=== PATIENT | female | born 1975 | race Two or more races ===

== ENCOUNTER 2020-09-11 11:54 | Inpatient (IN) | payer BC, OTHER ==
[~2020-09-11] VITALS: Ht 154.9 cm; Wt 69.9 kg
[2020-09-11 12:23] LABS: Basophils # (auto) 0 10 ^3/uL (0-0.2); Basophils % (auto) 0.2 % (0.0-2.0); Eosinophils # (auto) 0 10 ^3/uL (0-0.8); Hematocrit 42.3 % (36.0-46.0); Hemoglobin 14.8 g/dL (12.2-16.2); Lymphocytes # (auto) 0.4 10 ^3/uL (0.4-5.4); Lymphocytes % (auto) 10.9 % (10.0-50.0); Mean Corpuscular Hemoglobin 30.5 pg (28.0-32.0); Mean Corpuscular Hgb Conc. 35.1 g/dL (32.0-36.0); Monocytes # (auto) 0.3 10 ^3/uL (0-1.3); Monocytes % (auto) 8.3 % (0.0-12.0); Neutrophils # (auto) 3.1 10 ^3/uL (1.6-8.6); Neutrophils % (auto) 80.6 % (37.0-80.0); Nucleated Red Blood Cells % 0.6 %; Red Blood Cells 4.86 10^6/uL (4.0-5.20); Red Cell Distribution Width 13.1 % (11.8-14.3); White Blood Cell 3.8 10^3/uL (4.4-10.8)
[2020-09-11] MEDS ORDERED: ACETAMINOPHEN 325 MG TAB PO ONE (12:30)
[2020-09-11 12:38] LABS: Calcium 8.6 mg/dL (8.5-10.1)
[2020-09-11 12:44] LABS: BUN/Creatinine Ratio 11.9; Bilirubin, Total 0.5 mg/dL (0.2-1.0); Total Protein 7.8 g/dL (6.4-8.2)
[2020-09-11] MEDS ORDERED: ZINC SULFATE 220mg CAP or TAB PO ONE (12:45)
[2020-09-11] MEDS ORDERED: ASCORBIC ACID 500 MG TAB PO ONE (12:45)
[2020-09-11] MEDS ORDERED: DexAMETHasone SOD PHOS 10MG/1ML VIAL INJ IV ONE (12:45)
[2020-09-11] MEDS ORDERED: AZITHROMYCIN 500MG/ 250ML 250 ML IV ONE (12:45)
[2020-09-11] MEDS ORDERED: ONDANSETRON HCL 4 MG/2 ML VIAL ONE (13:25)
[2020-09-11] MEDS ORDERED: ONDANSETRON HCL 4 MG/2 ML VIAL IV ONE (13:30)
[2020-09-11] MEDS ORDERED: SODIUM CHLORIDE 0.9% 1,000 ML IV ONE (13:45)
[2020-09-11 13:48] LABS: Partial Thromboplastin Time 27.9 sec (23.0-31.2)
[2020-09-11] MEDS: POTASSIUM CHL 20MEQ/100ML 100 ML IV SCH ×2 (15:33→18:16)
[2020-09-11] MEDS ORDERED: HYDROcodone-ACET 5/325MG TAB PO PRN (18:00)
[2020-09-11] MEDS ORDERED: MORPHINE SULFATE INJECTION 2 MG/ML SYRG IV PRN ×2 (18:00)
[2020-09-11] MEDS ORDERED: NITROGLYCERIN 0.4 MG SL TAB SL PRN (18:00)
[2020-09-11] MEDS ORDERED: ACETAMINOPHEN 500 MG TAB PO PRN (18:00)
[2020-09-11] MEDS ORDERED: ONDANSETRON HCL 4 MG/2 ML VIAL IV PRN (18:00)
[2020-09-11 19:24] LABS: CRP High Sensitivity 4.47 mg/dL (< 0.3)
[2020-09-11] MEDS: ENOXAPARIN SOD 40 MG/0.4 ML SYRINGE SC SCH (21:39)
[2020-09-11] MEDS: BUDESONIDE (INHALATION) 180 MCG IH IN SCH (22:00)
[2020-09-12 06:10] LABS: Basophils # (auto) 0 10 ^3/uL (0-0.2); Basophils % (auto) 0.3 % (0.0-2.0); Eosinophils # (auto) 0 10 ^3/uL (0-0.8); Hematocrit 38.6 % (36.0-46.0); Hemoglobin 13.6 g/dL (12.2-16.2); Lymphocytes # (auto) 0.6 10 ^3/uL (0.4-5.4); Lymphocytes % (auto) 14.2 % (10.0-50.0); Mean Corpuscular Hgb Conc. 35.3 g/dL (32.0-36.0); Monocytes # (auto) 0.5 10 ^3/uL (0-1.3); Monocytes % (auto) 10.8 % (0.0-12.0); Neutrophils # (auto) 3.1 10 ^3/uL (1.6-8.6); Neutrophils % (auto) 74.7 % (37.0-80.0); Nucleated Red Blood Cells % 0.3 %; Red Blood Cells 4.39 10^6/uL (4.0-5.20); Red Cell Distribution Width 12.8 % (11.8-14.3); White Blood Cell 4.2 10^3/uL (4.4-10.8)
[2020-09-12 06:52] LABS: Potassium 3.8 mmol/L (3.5-5.1)
[2020-09-12 06:59] LABS: Albumin 3.3 g/dL (3.4-5.0); BUN/Creatinine Ratio 10.2; Bilirubin, Total 0.4 mg/dL (0.2-1.0); Calcium 8.2 mg/dL (8.5-10.1); Total Protein 6.9 g/dL (6.4-8.2)
[2020-09-12] MEDS: cefTRIAXone 1GM/50ML D5W 50 ML IV SCH (08:50)
[2020-09-12] MEDS: FAMOTIDINE 20 MG TAB PO SCH (09:22)
[2020-09-12] MEDS: ASCORBIC ACID 1,000 MG TAB PO SCH (09:22)
[2020-09-12] MEDS: ENOXAPARIN SOD 40 MG/0.4 ML SYRINGE SC SCH ×2 (09:22→22:23)
[2020-09-12] MEDS: DexAMETHasone SOD PHOS 10MG/1ML VIAL INJ IV SCH (09:22)
[2020-09-12] MEDS: ZINC SULFATE 220mg CAP or TAB PO SCH (09:22)
[2020-09-12] MEDS: AZITHROMYCIN 500MG/ 250ML 250 ML IV SCH (09:22)
[2020-09-12] MEDS: CHOLECALCIFEROL (VITD3) 2,000 UNIT CAP/TAB PO SCH (09:22)
[2020-09-12] MEDS: BUDESONIDE (INHALATION) 180 MCG IH IN SCH ×2 (12:02→18:44)
[2020-09-12] MEDS ORDERED: diphenhdrAMINE HCL 50 MG/1 ML VL IV PRN (12:45)
[2020-09-12] MEDS ORDERED: REMDESIVIR PER PHARMACY 0 ML IV SCH (12:45)
[2020-09-12] MEDS ORDERED: REMDESIVIR 200 MG in NS 210ml LOADING DOSE ADULT IV ONE (15:00)
[2020-09-13 00:07] VITALS: BP 115/76
[2020-09-13] MEDS ORDERED: ATEN-60 PO (01:18)
[2020-09-13] MEDS: BUDESONIDE (INHALATION) 180 MCG IH IN SCH ×2 (07:09→10:00)
[2020-09-13 08:00] VITALS: BP 106/75
[2020-09-13 08:11] LABS: Chloride 106 mmol/L (98-107); Potassium 3.2 mmol/L (3.5-5.1); Sodium 138 mmol/L (136-145)
[2020-09-13 08:15] LABS: Alanine Aminotransferase 47 U/L (13-56); Albumin 3.3 g/dL (3.4-5.0); Anion Gap 6 (5-15); Aspartate Aminotransferase 20 U/L (15-37); BUN/Creatinine Ratio 22.5; Blood Urea Nitrogen 9 mg/dL (7-18); Calcium 8.5 mg/dL (8.5-10.1); Carbon Dioxide 26 mmol/L (21-32); GFR African American 221 mL/min; GFR Non-African American 183 mL/min; Glucose 91 mg/dL (74-106)
[2020-09-13 08:18] LABS: Alkaline Phosphatase 92 U/L (45-117); Bilirubin, Total 0.4 mg/dL (0.2-1.0); Total Protein 6.8 g/dL (6.4-8.2)
[2020-09-13] MEDS ORDERED: ATENOLOL 25 MG TAB PO SCH (10:00)
[2020-09-13] MEDS: cefTRIAXone 1GM/50ML D5W 50 ML IV SCH (10:04)
[2020-09-13] MEDS: FUROSEMIDE 20 MG/2 ML VIAL IV SCH (10:05)
[2020-09-13] MEDS: DexAMETHasone SOD PHOS 10MG/1ML VIAL INJ IV SCH (10:05)
[2020-09-13] MEDS: AZITHROMYCIN 500MG/ 250ML 250 ML IV SCH (10:06)
[2020-09-13] MEDS: POTASSIUM CHL 10 Meq TABLET PO SCH (10:08)
[2020-09-13] MEDS: ZINC SULFATE 220mg CAP or TAB PO SCH (10:08)
[2020-09-13] MEDS: FAMOTIDINE 20 MG TAB PO SCH (10:08)
[2020-09-13] MEDS: CHOLECALCIFEROL (VITD3) 2,000 UNIT CAP/TAB PO SCH (10:09)
[2020-09-13] MEDS: ENOXAPARIN SOD 40 MG/0.4 ML SYRINGE SC SCH ×2 (10:09→21:58)
[2020-09-13] MEDS: ASCORBIC ACID 1,000 MG TAB PO SCH (10:09)
[2020-09-13] MEDS ORDERED: POTASSIUM CHL 20 Meq TABLET PO ONE (11:45)
[2020-09-13 16:00] VITALS: BP 108/75
[2020-09-13] MEDS: REMDESIVIR 100 MG in SODIUM CHL 0.9% 250 ML IV SCH (16:10)
[2020-09-14] VITALS: BP 116/81
[2020-09-14] MEDS: BUDESONIDE (INHALATION) 180 MCG IH IN SCH ×2 (07:09→21:57)
[2020-09-14 08:00] VITALS: BP 110/75
[2020-09-14] MEDS: cefTRIAXone 1GM/50ML D5W 50 ML IV SCH (09:00)
[2020-09-14 09:10] LABS: BUN/Creatinine Ratio 33.3; Calcium 8.6 mg/dL (8.5-10.1); Potassium 3.3 mmol/L (3.5-5.1)
[2020-09-14] MEDS: DexAMETHasone SOD PHOS 10MG/1ML VIAL INJ IV SCH (09:34)
[2020-09-14] MEDS: AZITHROMYCIN 500MG/ 250ML 250 ML IV SCH (09:34)
[2020-09-14] MEDS: CHOLECALCIFEROL (VITD3) 2,000 UNIT CAP/TAB PO SCH (09:35)
[2020-09-14] MEDS: ZINC SULFATE 220mg CAP or TAB PO SCH (09:35)
[2020-09-14] MEDS: ENOXAPARIN SOD 40 MG/0.4 ML SYRINGE SC SCH ×2 (09:35→21:08)
[2020-09-14] MEDS: POTASSIUM CHL 10 Meq TABLET PO SCH (09:35)
[2020-09-14] MEDS: FAMOTIDINE 20 MG TAB PO SCH (09:35)
[2020-09-14] MEDS: ASCORBIC ACID 1,000 MG TAB PO SCH (09:35)
[2020-09-14] MEDS: FUROSEMIDE 20 MG/2 ML VIAL IV SCH (09:38)
[2020-09-14] MEDS ORDERED: POTASSIUM CHL 20 Meq TABLET PO ONE (12:45)
[2020-09-14 16:00] VITALS: BP 109/63
[2020-09-14] MEDS: REMDESIVIR 100 MG in SODIUM CHL 0.9% 250 ML IV SCH (16:30)
[2020-09-14] MEDS ORDERED: TEMAZEPAM 15 MG CAP PO ONE ×2 (20:30)
[2020-09-14] MEDS ORDERED: DOCUSATE SOD 100 MG CAP PO PRN (20:30)
[2020-09-14 22:36] VITALS: BP 101/59
[2020-09-15] VITALS: BP 101/59
[2020-09-15] MEDS: BUDESONIDE (INHALATION) 180 MCG IH IN SCH ×2 (07:35→21:17)
[2020-09-15 08:12] VITALS: BP 115/71
[2020-09-15] MEDS: ZINC SULFATE 220mg CAP or TAB PO SCH (09:10)
[2020-09-15] MEDS: cefTRIAXone 1GM/50ML D5W 50 ML IV SCH (09:10)
[2020-09-15] MEDS: DexAMETHasone 4 MG TAB PO SCH (09:12)
[2020-09-15] MEDS: ASCORBIC ACID 1,000 MG TAB PO SCH (09:13)
[2020-09-15] MEDS: POTASSIUM CHL 10 Meq TABLET PO SCH (09:13)
[2020-09-15] MEDS: FAMOTIDINE 20 MG TAB PO SCH (09:13)
[2020-09-15] MEDS: AZITHROMYCIN 250 MG TAB PO SCH (09:14)
[2020-09-15] MEDS: ENOXAPARIN SOD 40 MG/0.4 ML SYRINGE SC SCH ×2 (09:14→21:20)
[2020-09-15] MEDS: CHOLECALCIFEROL (VITD3) 2,000 UNIT CAP/TAB PO SCH (09:15)
[2020-09-15] MEDS: FUROSEMIDE 20 MG TAB PO SCH (10:00)
[2020-09-15 16:00] VITALS: BP 102/70
[2020-09-15] MEDS: REMDESIVIR 100 MG in SODIUM CHL 0.9% 250 ML IV SCH (16:30)
[2020-09-15] MEDS ORDERED: TEMAZEPAM 15 MG CAP PO ONE (23:00)
[2020-09-16] VITALS: BP 114/79
[2020-09-16] MEDS: BUDESONIDE (INHALATION) 180 MCG IH IN SCH (06:26)
[2020-09-16 08:00] VITALS: BP 102/72
[2020-09-16] MEDS: cefTRIAXone 1GM/50ML D5W 50 ML IV SCH (08:55)
[2020-09-16] MEDS: DexAMETHasone 4 MG TAB PO SCH (08:56)
[2020-09-16] MEDS: ZINC SULFATE 220mg CAP or TAB PO SCH (08:56)
[2020-09-16] MEDS: POTASSIUM CHL 10 Meq TABLET PO SCH (08:57)
[2020-09-16] MEDS: FUROSEMIDE 20 MG TAB PO SCH (08:58)
[2020-09-16] MEDS: FAMOTIDINE 20 MG TAB PO SCH (08:58)
[2020-09-16] MEDS: ASCORBIC ACID 1,000 MG TAB PO SCH (08:58)
[2020-09-16] MEDS: ENOXAPARIN SOD 40 MG/0.4 ML SYRINGE SC SCH (08:59)
[2020-09-16] MEDS: AZITHROMYCIN 250 MG TAB PO SCH (08:59)
[2020-09-16] MEDS ORDERED: CHOL1CAP47 PO (09:49)
[2020-09-16] MEDS ORDERED: ZINC220T6 PO (09:49)
[2020-09-16] MEDS ORDERED: ASCO500T11 PO (09:49)
[2020-09-16] MEDS ORDERED: DEX4T PO (09:49)
[2020-09-16] MEDS ORDERED: FAMO-12 PO (09:49)
[2020-09-16] MEDS: CHOLECALCIFEROL (VITD3) 2,000 UNIT CAP/TAB PO SCH (12:34)
[2020-09-16 15:42] VITALS: BP 102/72
[2020-09-16 16:00] VITALS: BP 92/67
[2020-09-16] MEDS ORDERED: ASPI81CH43 PO (16:04)
== END 2020-09-16 17:49 | disposition home or self-care (01) | DRG 177 ==
LOC: ER 11:54 → TELE 11:55 → TELE-WESTW 09-12 23:35
PROVIDERS: ADMIT Nurse Practitioner Acute Care; ATTEND Internal Medicine
PROC: XW033E5 Introduction of Remdesivir Anti-infective into Peripheral Vein, Percutaneous Approach, New Technology Group 5 (ICD-10-PCS; principal; 2020-09-12)
DX: U07.1 COVID-19 (principal); J96.01 Acute respiratory failure with hypoxia; J12.82 Pneumonia due to coronavirus disease 2019; E87.1 Hypo-osmolality and hyponatremia; I10 Essential (primary) hypertension; E87.6 Hypokalemia; E78.5 Hyperlipidemia, unspecified; D69.6 Thrombocytopenia, unspecified; R73.9 Hyperglycemia, unspecified; D89.839 Cytokine release syndrome, grade unspecified; Z82.49 Family history of ischemic heart disease and other diseases of the circulatory system; Z90.710 Acquired absence of both cervix and uterus
CPT/HCPCS: 36415; 71045; 80048; 80053; 82728; 83036; 83605; 83615; 83735; 83880; 84443; 85025; 85379; 85610; 85730; 86141; 86850; 86900; 86901; 87040; 87426; 87804; 94640; 96361; 96365; 96366; 96375; G0378; J0696; J1100; J2405; J3480

== ENCOUNTER 2022-09-03 01:17 | Emergency (ER) | payer BC, OTHER ==
[~2022-09-03] VITALS: Ht 152.4 cm; Wt 79.3 kg
[~2022-09-03 01:17] MED LIST: ASCO500T11 PO; ASPI81CH43 PO; ATEN-60 PO; CHOL1CAP47 PO; DEX4T PO; FAMO-12 PO; ZINC220T6 PO
[2022-09-03 02:04] VITALS: BP 145/83
[2022-09-03] MEDS ORDERED: POLYSOL15 OP (03:53)
== END 2022-09-03 04:24 | disposition home or self-care (01) ==
LOC: ER 01:20
DX: H10.31 Unspecified acute conjunctivitis, right eye (principal); J06.9 Acute upper respiratory infection, unspecified; I10 Essential (primary) hypertension; Z90.49 Acquired absence of other specified parts of digestive tract; Z90.710 Acquired absence of both cervix and uterus; Z20.822 Contact with and (suspected) exposure to COVID-19; Z88.2 Allergy status to sulfonamides
CPT/HCPCS: 36415; 87426; 87804

== ENCOUNTER 2023-02-26 21:39 | Emergency (ER) | payer OTHER ==
[~2023-02-26] VITALS: Ht 152.4 cm; Wt 72.5 kg
[~2023-02-26 21:39] MED LIST changes: +POLYSOL28 OP
[2023-02-26 22:00] VITALS: BP 112/78
[2023-02-27] MEDS ORDERED: KETOROLAC TROMETH 30 MG/ML 1ML VIAL IM ONE
[2023-02-27] MEDS ORDERED: CYCL-837 PO (00:04)
[2023-02-27] MEDS ORDERED: IBUP-1455 PO (00:04)
== END 2023-02-27 00:28 | disposition home or self-care (01) ==
LOC: ER 21:44
DX: S16.1XXA Strain of muscle, fascia and tendon at neck level, initial encounter (principal); E78.5 Hyperlipidemia, unspecified; I10 Essential (primary) hypertension; Z90.49 Acquired absence of other specified parts of digestive tract; Z90.710 Acquired absence of both cervix and uterus; Z88.6 Allergy status to analgesic agent; X58.XXXA Exposure to other specified factors, initial encounter; Y93.89 Activity, other specified; Y92.89 Other specified places as the place of occurrence of the external cause; Y99.8 Other external cause status
CPT/HCPCS: 96372; 99283; J1885

== ENCOUNTER 2025-09-05 08:39 | Emergency (ER) | payer MEDICAID, OTHER ==
[~2025-09-05] VITALS: Ht 162.6 cm; Wt 70.0 kg
[~2025-09-05 08:39] MED LIST changes: +CYCL-837 PO; +IBUP-1455 PO
--- NOTE | 2025-09-05 09:02 | ED.PDOC ---
Back pain HPI HPI Comments A 49 YEAR OLD FEMALE VIANCA PRESENTS TO THE ED WITH COMPLAINT OF BACK PAIN. PATIENT REPORTS THAT SHE HAS BEEN EXPERIENCING PERSISTENT LOWER BACK PAIN WORSENING FOR THE PAST 2 WEEKS. PATIENT RELAYS THAT HER PAIN SUDDENLY WORSENED TODAY, NEEDING TO CALL 911 FOR ASSISTANCE. EMS STATES PATIENT WAS GIVEN TOTAL 42MG OF KETAMINE EN ROUTE TO THE ED. PATIENT NOTES SHE HAS HISTORY OF CHRONIC BACK PAIN. THE BACK PAIN DOES NOT RADIATE TO LOWER LEGS. PATIENT DENIES FEVER, CHILLS, FALL, INJURY, SHORTNESS OF BREATH, CHEST PAIN, ABDOMINAL PAIN, NAUSEA, VOMITING, HEADACHE, OR OTHER COMPLAINTS. NO OTHER SYMPTOMS OR MODIFYING FACTORS AT THIS TIME. PATIENT IS ALERT, ORIENTED X 4, AND HAS STEADY GAIT. Chief Complaint: Back Pain Time Seen by MD: 08:54 Reviewed Notes: Nurses Notes, Glass Vial Filler Notes, Medications, Allergies Allergies: Coded Allergies: NO KNOWN ALLERGIES (Unverified , 09/11/20) Home Meds Active Scripts Methocarbamol (Methocarbamol) 750 Mg Tab, 750 MG PO BID, #20 TAB Prov:IVELISSE JUSTICE 09/05/25 Ibuprofen (Ibuprofen) 800 Mg Tab, 1 TAB PO TID, #30 TAB Prov:IVELISSE JUSTICE 09/05/25 Cyclobenzaprine Hcl (Cyclobenzaprine Hcl) 5 Mg Tab, 1 TAB PO QPM PRN, #20 TAB 0 Refills Prov:MICHELLE KOHLER 02/27/23 Ibuprofen Micronized (Ibuprofen) 800 Mg Tab, 800 MG PO Q6HPRN PRN, #30 TAB 0 Refills Prov:MICHELLE KOHLER 02/27/23 Polymyxin B-Trimethoprim (Trimethoprim Sulfate/Poly) Polymyxn Kasey, 1 DROP OP Q3HWA for 7 Days, #1 BOTTLE 0 Refills Prov:MICHELLE KOHLER 09/03/22 Aspirin (Asa) 81 Mg Ch, 81 MG PO DAILY for 30 Days, #30 TAB Prov:VINOD DEXTER MD 09/16/20 Famotidine (Famotidine) 20 Mg Tab, 20 MG PO DAILY for 30 Days, #30 TAB Prov:VINOD DEXTER MD 09/16/20 Dexamethasone (Decadron) 4 Mg Tb, 4 TAB PO DAILY, #5 TAB Prov:VINOD DEXTER MD 1/4/21 Zinc Sulfate (Zinc Sulfate) 220 Mg Tab, 220 MG PO DAILY for 30 Days, #30 TAB Prov:VINOD DEXTER MD 09/16/20 Ascorbic Acid (VITAMIN C TABLET) 500 Mg Tb, 1 TAB PO BID, #60 TAB Prov:VINOD DEXTER MD 09/16/20 Cholecalciferol (Vitamin D3 Super Strength) 2,000 Unit Cap, 4000 UNIT PO DAILY for 30 Days, #60 CAP Prov:VINOD DEXTER MD 09/16/20 Reported Medications Atenolol (Atenolol) 25 Mg Tab, 10 MG PO DAILY for 30 Days, MG 09/13/20 Information Source: Patient, Emergency Med Personnel Mode of Arrival: EMS Timing: Weeks Duration: Since onset Location of Back pain: (B) Lower back Severity: Moderate Prehospital treatment: None Quality: Sharp Onset: Spontaneous Circumstance: Other History of: Chronic Back Pain Modifying Factors: Movement, Twisting Associated signs and symptoms: None Past Medical History PAST MEDICAL HISTORY: High Lipids, HTN Past Medical History (Other): CHRONIC BACK PAIN Surgical History: Cholecystectomy, Hysterectomy CLERICAL OFFICE WORKER History: No Pertinent CLERICAL OFFICE WORKER History Family History Family History: Reviewed,noncontributory to illness Social History Smoker: Non-Smoker Alcohol: Occasionally Drugs: Denies Drug Use Lives In: Home Constitutional: denies: chills, diaphoresis, fatigue, fever, malaise, sweats, weakness, others EENTM: denies: blurred vision, double vision, ear bleeding, ear discharge, ear drainage, ear pain, ear ringing, eye pain, eye redness, hearing loss, mouth pain, mouth swelling, nasal discharge, nose bleeding, nose congestion, nose pain, photophobia, tearing, throat pain, throat swelling, voice changes, others Respiratory: denies: cough, hemoptysis, orthopnea, SOB at rest, shortness of breath, SOB with excertion, stridor, wheezing, others Cardiovascular: denies: chest pain, dizzy spells, diaphoresis, Dyspnea on exertion, edema, irregular heart beat, left arm pain, lightheadedness, palpitations, PND, syncope, others Gastrointestinal: denies: abdomen distended, abdominal pain, blood streaked bowels, constipated, diarrhea, dysphagia, difficulty swallowing, hematemesis, melena, nausea, poor appetite, poor fluid intake, rectal bleeding, rectal pain, vomiting, others Genitourinary: denies: abnormal vagina bleeding, burning, dyspareunia, dysuria, flank pain, frequency, hematuria, incontinence, pain, , vagina discharge, urgency, others Neurological: denies: dizziness, fainting, headache, left sided numbness, left sided weakness, numbness, paresthesia, pre-existing deficit, right sided numbness, right sided weakness, seizure, speech problems, tingling, tremors, weakness, others Musculoskeletal: reports: back pain, muscle pain; denies: gout, joint pain, joint swelling, muscle stiffness, neck pain, others Integumetry: denies: bruises, change in color, change in hair/nails, dryness, laceration, lesions, lumps, rash, wounds, others Allergic/Immunocompromised: denies: Difficulty Healing, Frequent Infections, Hives, Itching, others Hematologic/Lymphatic: denies: anemia, blood clots, easy bleeding, easy bruising, swollen glands, others Endocrine: denies: excessive hunger, excessive sweating, excessive thirst, excessive urination, flushing, intolerance to cold, intolerance to heat, unexplained weight gain, unexplained weight loss, others Psychiatric: denies: anxiety, bipolar disorder, depression, hopeless, panic disorder, schizophrenia, sleepless, suicidal, others All Other Systems: Reviewed and Negative Physical Exam General Appearance: No Apparent Distress, Normal HEENT: Normal ENT Inspection, PERRL/EOMI, Pharynx Normal, TMs Normal Neck: Full Range of Motion, Non-Tender, Normal, Normal Inspection Respiratory: Chest Non-Tender, Lungs Clear, No Accessory Muscle Use, No Respiratory Distress, Normal Breath Sounds Cardiovascular: No Edema, No JVD, No Murmur, No Gallop, Normal Peripheral Puls es, Regular Rate/Rhythm Breast Exam: Deferred Gastrointestinal: No Organomegaly, Non Tender, No Pulsatile Mass, Normal Bowel Sounds, Soft Genitalia: Deferred Pelvic: Deferred Rectal: Deferred Extremities: No calf tenderness, Normal capillary refill, Normal inspection, Normal range of motion, Non-tender, No pedal edema Musculoskeletal : Location: Bilateral Extremity Location: Back Apperance: Tenderness: Moderate (MUSCLE SPASM ON LOWER BACK, NO BONY TENDERNESS, SWELLING AND DEFORMITY. NO CVA TENDERNESS. 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 Was a procedure done?: No Back Pain Differential Dx Differential Diagnosis: Musculoskeletal Pain, Strain, Other (DDD OF LOWER BACK ) X-Ray, Labs, Meds, VS Vital Signs Date Time Temp Pulse Resp B/P (MAP) Pulse Ox O2 Delivery O2 Flow Rate FiO2 09/05/25 09:13 87 18 97 Room Air 09/05/25 09:13 97.6 87 18 125/82 (96) 97 97.6 09/05/25 08:51 98.3 94 18 174/93 99 98.3 Current Medications Medications (Trade) Dose Ordered Sig/Samantha Route Start Time Stop Time Status Last Admin Ketorolac Tromethamine (Toradol Injection) 30 mg ONCE ONCE IV 09/05/25 09:30 09/05/25 09:31 DC 09/05/25 09:35 PATIENT: BEREKET LINKACCT: [id number]: [id number] : 1975 LOC: ER ROOM / BED: / AGE / SEX: 49 / F ADM STATUS: [facility] ER SERVICE 8 ORDERING PHYSICIAN: IVELISSE JUSTICE PROCEDURE(s): LUMB2 - LUMBAR SPINE 3 VIEW REASON: LOW BACK PAIN ORDER NUMBER(s): [id number], ACCESSION NUMBER(s): [id number] CLINICAL HISTORY: LOW BACK PAIN TECHNIQUE: 2 views of the lumbar spine were obtained. COMPARISON: None FINDINGS: The alignment of the lumbar spine is normal. The vertebral body heights are maintained. There is moderate L5-S1 disc space loss with endplate osteophytes. No acute fracture or dislocation is seen. There are right upper quadrant post cholecystectomy clips. IMPRESSION: NO ACUTE RADIOGRAPHIC ABNORMALITY OF THE LUMBAR SPINE. ATED BY: GABI VAZQUEZ MD DICTATED DATE/TIME: 09/05/25933 SIGNED BY: GABI VAZQUEZ MD SIGNED DATE/TIME: 12/24/25 0934 CC: X-Ray, Labs, Meds, VS Comment EXTERNAL MEDICAL RECORDS REVIEWED: [NONE] INDEPENDENT HISTORIANS: EMS SOCIAL DETERMINANTS OF HEALTH: [NONE] LABS ORDERED: NONE REVIEWED AND INTERPRETED RESULTS: L-SPINE XR IMAGING ORDERED: L-SPINE XR INTERPRETED BY ME. MILD DDD NOTED TO L5-S1. NO ACUTE FINDINGS. NO FRACTURES OR DISLOCATION. PENDING RADIOLOGIST REPORT. TREATMENTS ORDERED: TORADOL 30MG IVP PROCEDURES PERFORMED: NONE CRITICAL CARE TIME: NONE I HAVE DISCUSSED THE PATIENT WITH THE ATTENDING PHYSICIAN DR. ODEN AND HE AGREES WITH THE PATIENT'S PLAN OF CARE AND DISPOSITION. BASED ON HISTORY OF PRESENT ILLNESS, AND PHYSICAL EXAM, PATIENT WILL BE DISCHARGED HOME. DISCUSSED PLAN FOR DISCHARGE HOME WITH RX [IBUPROFEN AND ROBAXIN]. MEDICATION WARNINGS GIVEN. SHARED DECISION MAKING: DISCUSSED WITH PATIENT THAT THEIR WORKUP WAS NORMAL. PATIENT INSTRUCTED TO FOLLOW UP WITH PRIMARY CARE PROVIDER IN 1-2 DAYS FOR RE- EVALUATION OF SYMPTOMS. PATIENT VERBALIZES UNDERSTANDING TO RETURN TO ED FOR NEW OR WORSENING SYMPTOMS OR IF FOLLOW UP WITH PCP CANNOT BE OBTAINED. PATIENT FEELS COMFORTABLE GOING HOME AT THIS TIME. ALL QUESTIONS ADDRESSED AT TIME OF DISCHARGE. Time of 1ST Reevaluation: :41 Reevaluation 1ST: Improved Patient Education/Counseling: Diagnosis, Treatment, Need For Follow Up Family Education/Counseling: Diagnosis, Treatment, Need For Follow Up Medical Screening: No EMC Exist At This Time SEPSIS Sepsis Screen Physician Orders Lumbar Spine 3 View (09/05/25 08:59) Vital Signs Date Time Temp Pulse Resp B/P (MAP) Pulse Ox O2 Delivery O2 Flow Rate FiO2 09/05/25 09:13 87 18 97 Room Air 09/05/25 09:13 97.6 87 18 125/82 (96) 97 97.6 09/05/25 08:51 98.3 94 18 174/93 99 98.3 Medications Medications Dose Ordered Sig/Samantha Route Start Time Stop Time Status Last Admin Dose Admin Ketorolac Tromethamine 30 mg ONCE ONCE IV 09/05/25 09:30 09/05/25 09:31 DC 09/05/25 09:35 Departure 1 Departure Time of Disposition: :41 Impression: Primary Impression: DDD (degenerative disc disease), lumbosacral Qualified Codes: M51.370 - Other intervertebral disc degeneration, lumbosacral region with discogenic back pain only Disposition: 01 HOME / SELF CARE / HOMELESS Condition: Stable Additional Instructions: FOLLOW-UP WITH PCP IN 1 TO 2 DAYS. TAKE MEDICATIONS PRESCRIBED. RETURN TO ED FOR ANY NEW OR WORSENING SYMPTOMS. e-Prescriptions Methocarbamol (Methocarbamol) 750 Mg Tab 750 MG PO BID, #20 TAB Prov: IVELISSE JUSTICE 09/05/25 Ibuprofen (Ibuprofen) 800 Mg Tab 1 TAB PO TID, #30 TAB Prov: IVELISSE JUSTICE 09/05/25 Discharged With: Self, Relative Critical Care Note Critical Care Time?: No Stability Stability form required: No Heart Score Heart Score: Heart Score Response (Comments) Value History N/A 0 EKG N/A 0 Age N/A 0 Risk Factors N/A 0 Troponin N/A 0 Total 0 I personally scribed for IVELISSE JUSTICE ([email or web address]) on 09/05/25 at 09:02. Electronically submitted by Neil Dennison ([email or web address]). I personally scribed for IVELISSE JUSTICE ([email or web address]) on 09/05/25 at 09:18. Electronically submitted by Neil Dennison ([email or web address]). I personally scribed for IVELISSE JUSTICE ([email or web address]) on 09/05/25 at 09:20. Electronically submitted by Neil Dennison ([email or web address]). IVELISSE JUSTICE Sep 05, 2025 09:02
[2025-09-05 09:13] VITALS: BP 125/82; PULSE 87; RESP 18; TEMP 97.6; O2SAT 97
[2025-09-05] MEDS ORDERED: IBUP-1456 PO (09:21)
[2025-09-05] MEDS ORDERED: METH-1182 PO (09:21)
[2025-09-05] MEDS: KETOROLAC TROMETH 30 MG/ML 1ML VIAL IV ONE (09:35)
--- NOTE | 2025-09-05 09:36 | DVH ---
CLINICAL HISTORY: LOW BACK PAIN TECHNIQUE: 2 views of the lumbar spine were obtained. COMPARISON: None FINDINGS: The alignment of the lumbar spine is normal. The vertebral body heights are maintained. There is moderate L5-S1 disc space loss with endplate osteophytes. No acute fracture or dislocation is seen. There are right upper quadrant post cholecystectomy clips. IMPRESSION: NO ACUTE RADIOGRAPHIC ABNORMALITY OF THE LUMBAR SPINE.
== END 2025-09-05 09:38 | disposition home or self-care (01) ==
LOC: EDBD 08:39 → ER 08:39
DX: M51.379 Other intervertebral disc degeneration, lumbosacral region without mention of lumbar back pain or lower extremity pain (principal); F10.90 Alcohol use, unspecified, uncomplicated; E78.5 Hyperlipidemia, unspecified; I10 Essential (primary) hypertension; Z79.899 Other long term (current) drug therapy; Z90.710 Acquired absence of both cervix and uterus; Z90.49 Acquired absence of other specified parts of digestive tract; Z79.52 Long term (current) use of systemic steroids; Z79.1 Long term (current) use of non-steroidal anti-inflammatories (NSAID); Z79.82 Long term (current) use of aspirin
CPT/HCPCS: 72100; 96374; 99283; J1885